=== PATIENT | female | born 1960 | race Caucasian/White ===

== ENCOUNTER 2021-06-11 07:44 | Day surgery (SDC) | payer BC ==
[~2021-06-11] VITALS: Ht 162.6 cm; Wt 79.2 kg
[~2021-06-11 07:44] MED LIST: XANAX .25M0.25 MG/TA PO; ZITHROMAX Z PA250 MG PO
[2021-06-11] MEDS ORDERED: MOBIC 7.5MG7.5 MG PO (08:27)
[2021-06-11 08:37] VITALS: BP 149/100; PULSE 83; TEMP 97.3
[2021-06-11 10:00] VITALS: BP 123/71; PULSE 77
--- NOTE | 2021-06-11 10:00 | NUR ---
Pt to GI [facility] 1 via cart from ENDO. Pt awake and alert. Ambulates to recliner with stand by assist. Denies pain or nausea. Water given per pt request. Will continue to monitor. Call light within reach.
[2021-06-11 10:15] VITALS: BP 131/89; PULSE 60
--- NOTE | 2021-06-11 10:15 | NUR ---
Pt continues to rest. Denies needs. Call light within reach.
[2021-06-11 10:30] VITALS: BP 136/86; PULSE 60
--- NOTE | 2021-06-11 10:30 | NUR ---
IV site discontinued with all parts intact. Discharge instructions reviewed. Pt voices understanding. Pt up to dress. Call light within reach.
--- NOTE | 2021-06-11 10:40 | NUR ---
Pt escorted to private car via wheel chair. Pt accompanied home by her friend Doris.
== END 2021-06-11 10:40 | disposition home or self-care (01) ==
LOC: SDCO 07:44
DX: Z12.11 Encounter for screening for malignant neoplasm of colon (principal); Z86.010 Personal history of colon polyps
CPT/HCPCS: J2704; J7030